=== PATIENT | male | born 1960 | race American Indian/Alaskan Native ===

== ENCOUNTER 2021-05-01 09:49 | Outpatient (CLI) | payer OTHER ==
--- NOTE | 2021-05-01 11:58 | Cat Scan Report ---
CT ABDOMEN AND PELVIS WITHOUT CONTRAST INDICATION / CLINICAL INFORMATION: MALIGNANT NEOPLASM OF PROSTATE. TECHNIQUE: Axial CT images were obtained through the abdomen and pelvis without IV contrast. All CT scans at this location are performed using CT dose reduction for ALARA by means of automated exposure control. COMPARISON: None available. FINDINGS: LOWER CHEST: No significant abnormality LIVER: No significant abnormality GALLBLADDER/BILIARY TREE: Uncomplicated cholelithiasis. No biliary dilatation. PANCREAS: No significant abnormality SPLEEN: No significant abnormality ADRENALS: No significant abnormality KIDNEYS / URETER: No significant abnormality URINARY BLADDER: Bladder is partially decompressed, though grossly unremarkable. REPRODUCTIVE ORGANS: Prostate gland is enlarged, measuring 6.3 cm. The prostate protrudes into the ba se of the bladder. STOMACH / BOWEL: No significant abnormality. The appendix is normal in caliber. LYMPH NODES: No significant adenopathy. VASCULATURE: No significant abnormality. OTHER: No free air, free fluid, or focal fluid collection is identified. SKELETAL SYSTEM: No acute osseous findings. No suspicious osseous lesions. IMPRESSION: 1. No evidence of metastatic disease in the abdomen or pelvis. 2. Prostate gland is enlarged and protrudes into the base of the bladder. Signer Name: Amadeo Sloan MD Signed: 05/01/2021 11:54 AM Workstation Name: [email or web address]
--- NOTE | 2021-05-01 14:17 | Nuclear Medicine Report ---
NUCLEAR MEDICINE BONE SCAN, WHOLE BODY INDICATION: MALIGNANT NEOPLASM OF PROSTATE. Elevated PSA 29 TECHNIQUE: 25.2 mCi of Tc-99m MDP were injected IV. Whole body images were obtained. COMPARISON: CT abdomen pelvis today. FINDINGS: Skeletal Structures: No focal areas of asymmetric activity. Mild, relatively symmetric, periarticular activity which is likely degenerative. Skeletal Lesions: Single small focal area of increased tracer activity left frontal calvarium. No oth er skeletal lesions. Soft Tissues: Normal. Kidneys: Normal, symmetric activity. Additional Findings: None. IMPRESSION: 1. Mild nonspecific tracer activity left anterior frontal bone. This could be better evaluated with C T head if warranted clinically. 2. No other scintigraphic evidence for skeletal metastases Signer Name: Steffen Cook MD Signed: 05/01/2021 2:13 PM Workstation Name: [id number]
== END 2021-05-01 09:50 | disposition home or self-care (01) ==
LOC: NM 09:49
PROVIDERS: ATTEND Urology
DX: C61 Malignant neoplasm of prostate (principal); N40.0 Benign prostatic hyperplasia without lower urinary tract symptoms
CPT/HCPCS: 74176; 78306; A9503